=== PATIENT | female | born 1990 | race Caucasian/White ===

== ENCOUNTER 2020-03-17 08:45 | Emergency (ER) | payer OTHER, SELFPAY ==
[2020-03-17] VITALS (7 sets, daily range): BP systolic 103–136; BP diastolic 55–89; PULSE 55–92; RESP 16–18; TEMP 36.2; O2SAT 98–100; BMI 27.9
--- NOTE | 2020-03-17 09:12 | ED_ITS ---
HPI - Abdominal Pain General Chief Complaint: Nausea/Vomiting/Diarrhea Stated Complaint: vomiting,tested positive Time Seen by Provider: 03/17/20 08:50 Source: patient Mode of arrival: Ambulatory Limitations: no limitations History of Present Illness HPI narrative: Patient is a 29-year-old female who presents with nausea and vomiting. She states she tested positive for COVID 3 days ago. She started having symptoms 1 week ago. She has body aches generalized fatigue loss of taste and smell. She started vomiting last night around 2:00 a.m. and it has been nonstop. She has also had some episodes of diarrhea. She denies any specific abdominal pain. Unable to keep anything down. She denies any chest congestion cough or shortness of breath. Onset (ago): hour(s) Pain Consistency: constant Related Data Home Medications Medication Instructions Recorded Confirmed norgestimate-ethinyl estradiol 1 tab PO DAILY 05/10/19 05/10/19 0.18 mg/0.215mg/0.25mg-35 mcg(28)tablet Previous Rx's Medication Instructions Recorded ondansetron 4 mg PO Q8H PRN #10 tab 03/17/20 Allergies Allergy/AdvReac Type Severity Reaction Status Date / Time No Known Drug Allergies Allergy Verified 03/17/20 13:07 Review of Systems Review of Systems Narrative: GENERAL: Denies chills, fatigue, malaise, fever, sweats, travel HEENT: Denies sinus pain, ear pain, sore throat, difficulty swallowing, neck pain RESPIRATORY: Denies dyspnea, cough, wheezing, hemoptysis, sputum. CARDIOVASCULAR: Denies chest pain, palpitations, orthopnea, edema GASTROINTESTINAL: See HPI : Denies dysuria, frequency, incontinence, hematuria, urinary retention, flank pain. MUSCULOSKELETAL: Denies weakness, joint pain, or bony pain SKIN: No rash, no erythema, no pruritus NEUROLOGIC: Denies weakness, dizziness, headache, numbness, change in speech, confusion PSYCHIATRIC: No concerning psychosocial issues. 12 point review of systems is negative except for those stated above and HPI Patient History Medical History (Updated 03/17/20 @ 13:07 by Lola Gurrola) Acute hemorrhoid Patient denies medical problems Surgical History (System 03/17/20 @ 13:07 by Lola Gurrola) H/O: Family History (System 03/17/20 @ 13:07 by Lola Gurrola) Father Hypertension Diabetes mellitus Grandmother Hypertension Diabetes mellitus Social History (System 03/17/20 @ 13:07 by Lola Gurrola) Smoking Status: Never smoker alcohol intake: never substance use type: does not use Exam Initial Vital Signs Initial Vital Signs: Vital Signs Temperature 97.1 F L 03/17/20 08:50 Pulse Rate 66 03/17/20 08:50 Respiratory Rate 18 03/17/20 08:50 Blood Pressure 136/89 03/17/20 08:50 Pulse Oximetry 100 03/17/20 08:50 GENERAL: [Well-appearing, well-nourished] and in [no acute] distress. HEENT: Head atraumatic,EOMI, pupils reactive, face symmetric, dry mucous membranes CARDIOVASCULAR: Regular rate and rhythm without murmurs, rubs or gallops. RESPIRATORY: Breath sounds equal bilaterally, no wheezes rales or rhonchi. ABDOMEN: Soft, nontender. Normoactive bowel sounds all 4 quadrants. No guar ding or rebound. EXTREMITIES: Normal range of motion, no clubbing or edema. Neurovascularly intact NEUROLOGICAL: Alert and oriented x4.Normal gait and speech. Cranial nerves II through XII grossly intact. SKIN: Warm, dry, no laceration, no petechiae, no rashes or lesions. Course Orders Ordered: ED Orders 03/17/20 09:10 Complete Blood Count AUTO DIFF Stat Comprehensive Metabolic Panel Stat Lipase Stat Discontinued Medications Sodium Chloride (Normal Saline 0.9%) 1,000 mls @ 1,000 mls/hr IV CONT ORIANA Last Infusion: 03/17/20 10:36 Dose: 0 mls/hr Documented by: Admin: 03/17/20 09:21 Dose: 1,000 mls/hr Documented by: BRIANNA Ondansetron HCl (Ondansetron 4 Mg/2 Ml Inj) 4 mg IV NOW ONE Stop: 03/17/20 08:59 Last Admin: 03/17/20 09:21 Dose: 4 mg Documented by: BRIANNA Pantoprazole Sodium (Pantoprazole 40 Mg Vial) 40 mg IV NOW ONE Stop: 03/17/20 08:59 Last Admin: 03/17/20 09:21 Dose: 40 mg Documented by: BRIANNA Vital Signs Vital signs: Vital Signs - 8 hr 03/17/20 08:50 03/17/20 09:15 03/17/20 09:30 Temperature 97.1 F L Pulse Rate 66 55 L 60 Respiratory Rate 18 16 Blood Pressure 136/89 112/66 103/55 L Pulse Oximetry 100 100 100 03/17/20 09:55 03/17/20 10:00 03/17/20 10:30 Temperature Pulse Rate 92 H 58 L 61 Respiratory Rate Blood Pressure 113/60 117/71 113/67 Pulse Oximetry 98 100 100 03/17/20 10:46 Temperature Pulse Rate 61 Respiratory Rate 16 Blood Pressure 113/67 Pulse Oximetry 100 MDM - Abdominal Pain Lab Data Attestation: I reviewed the patient's lab results. Result diagrams: 03/17/20 09:10 03/17/20 09:10 Labs: Lab Results 03/17/20 03/17/20 Range/Units 09:10 09:10 WBC 4.5 (4.5-11.0) X10^3/uL RBC 4.38 (4.0-5.2) X10^6/uL Hgb 13.3 (12.0-16.0) g/dL Hct 39.5 (36-46) % MCV 90.3 (80-100) fL MCH 30.4 (26-34) PG MCHC 33.6 (30-36) % RDW 13.1 (11.6-14.8) % Plt Count 152 (150-400) X10^3/uL Neut % (Auto) 77.8 H (50-75) % Lymph % (Auto) 19.0 L (25-40) % [place] % (Auto) 2.7 L (3-14) % Eos % (Auto) 0.1 L (2-4) % Baso % (Auto) 0.4 (0-2) % Neut # (Auto) 3500 (2496-1144) /uL Lymph # (Auto) 900 L (0433-8389) /uL [place] # (Auto) 100 (0-900) /uL Eos # (Auto) 0 (0-450) /uL Baso # (Auto) 0 (0-100) /uL Sodium 136 L (137-145) mmol/L Potassium 3.8 (3.4-5.1) mmol/L Chloride 105 (98-107) mmol/L Carbon Dioxide 24 (22-32) mmol/L BUN 13 (7-17) mg/dL Creatinine 0.65 (0.52-1.04) mg/dL Estimated GFR > 60.0 (>60) mL/min BUN/Creatinine Ratio 20.0 (6-22) Glucose 128 H (70-100) mg/dL Calcium 9.1 (8.4-10.2) mg/dL Total Bilirubin 0.3 (0.2-1.3) mg/dL AST 24 (14-36) IU/L ALT 17 (<35) IU/L Alkaline Phosphatase 49 (38-126) U/L Total Protein 7.7 (6.3-8.2) g/dL Albumin 4.4 (3.5-5.0) g/dL Globulin 3.3 (1.7-4.1) g/dL Albumin/Globulin Ratio 1.3 (1.0-2.8) Lipase 61 (23-300) U/L Point of care testing: Point of Care Testing Test Results Negative Urine Dip Bedside Urine Glucose Negative Bedside Urine Bilirubin - Negative Bedside Urine Ketone +++ 80 Urine Specific [place] 1.020 Bedside Urine Occult Blood - Negative Bedside Urine pH 7.0 Bedside Urine Protein - Negative Bedside Urine Urobilinogen - Negative Bedside Urine Nitrite - Negative Bedside Urine Leukocytes - Negative Esterase MDM Narrative Medical decision making narrative: Tolerating fluids. No respiratory symptoms O2 level is 99-100% on room air. She now is feeling much better after Zofran and IV fluids. Blood work is overall reassuring. At this time I still recommend quarantine for total of 14 days. Discussed oral rehydration technique with her. Discharge Plan Departure Patient Disposition: Home Clinical Impression: Gastroenteritis, COVID-19 Instructions: DI for Viral Gastroenteritis -- Adult, DI for COVID-19 (Suspected or Confirmed ) Activity Restrictions/Additional Instructions: 1) You have been diagnosed with COVID-19 and gastroenteritis 2) What to do: Drink frequent but small amounts of fluids. I recommend Gatorade or a Gatorade-like product, as it has small amounts of sugar and salts that improve fluid retention. 3) Take medications as directed Zofran 4 mg every 8 hours if needed for nausea or vomiting--> SENT TO [facility] IN [place] 4) Follow up with your primary care provider in 2-3 days 5) Return to ER if you should have any new or worsening symptoms such as, unable to hold down fluids despite use of anti-nausea medications and the small volume oral rehydration strategy. Please follow CDC guidelines regards to quarantine. You should quarantine for 14 days from the onset of symptoms Prescriptions: New ondansetron 4 mg tablet,disintegrating 4 mg PO Q8H PRN (Reason: nausea and vomiting) Qty: 10 RF: 0 No Action norgestimate-ethinyl estradiol [Ortho Tri-Cyclen (28)] 0.18/0.215/0.25 mg-35 mcg (28) tablet 1 tab PO DAILY RF: 0 Referrals: Neil Vega MD [Primary Care Provider] -
[2020-03-17] MEDS: ONDANSETRON 4 MG/2 ML INJ IV (09:21)
[2020-03-17] MEDS: PANTOPRAZOLE 40 MG VIAL IV (09:21)
[2020-03-17] MEDS: SODIUM CHLORIDE 0.9% 1,000 ML 1000 ML IV (09:21)
[2020-03-17 09:25] LABS: Add Manual Diff / Slide Review NO; Basophils Absolute Auto 0 /uL (0-100); Basophils Percent Auto 0.4 % (0-2); Eosinophils Absolute Auto 0 /uL (0-450); Eosinophils Percent Auto 0.1 % (2-4); Hematocrit 39.5 % (36-46); Hemoglobin 13.3 g/dL (12.0-16.0); Lymphocytes Absolute Auto 900 /uL (1100-4500); Mean Corpuscular HGB Conc 33.6 % (30-36); Mean Corpuscular Hemoglobin 30.4 PG (26-34); Mean Corpuscular Volume 90.3 fL (80-100); Monocytes Absolute Auto 100 /uL (0-900); Monocytes Percent Auto 2.7 % (3-14); Neutrophils Absolute Auto 3500 /uL (1500-7000); Neutrophils Percent Auto 77.8 % (50-75); Platelet Count 152 X10^3/uL (150-400); Red Blood Cell Count 4.38 X10^6/uL (4.0-5.2); Red Cell Distribution Width 13.1 % (11.6-14.8); White Blood Cell Count 4.5 X10^3/uL (4.5-11.0)
[2020-03-17 09:39] LABS: Alanine Aminotransferase 17 IU/L (<35); Albumin 4.4 g/dL (3.5-5.0); Albumin Globulin Ratio 1.3 (1.0-2.8); Alkaline Phosphatase 49 U/L (38-126); Aspartate Aminotransferase 24 IU/L (14-36); Bilirubin Total 0.3 mg/dL (0.2-1.3); Blood Urea Nitrogen 13 mg/dL (7-17); Calcium 9.1 mg/dL (8.4-10.2); Carbon Dioxide 24 mmol/L (22-32); Chloride 105 mmol/L (98-107); Estimated Glomerular Filt Rate > 60.0 mL/min (>60); Globulin 3.3 g/dL (1.7-4.1); Glucose 128 mg/dL (70-100); HEMOLYSIS < 15 (0-50); Lipase 61 U/L (23-300); Potassium 3.8 mmol/L (3.4-5.1); Sodium 136 mmol/L (137-145); Total Protein 7.7 g/dL (6.3-8.2)
--- NOTE | 2020-03-17 10:39 | PC.NURSE ---
6oz water provided for po challenge.
== END 2020-03-17 10:57 | disposition home or self-care (01) ==
PROVIDERS: Emergency Provider Emergency Medicine; PCP Pediatrics Pediatric Emergency Medicine
DX: K52.9 Noninfective gastroenteritis and colitis, unspecified (principal); U07.1 COVID-19
CPT/HCPCS: 36415; 80053; 81003; 81025; 83690; 85025; 96361; 96374; 96375; 99281; 99284; C9113; J2405